=== PATIENT | female | born 2000 | race Caucasian/White ===

== ENCOUNTER 2021-05-17 19:10 | Emergency (ER) | payer OTHER ==
[~2021-05-17] VITALS: Ht 154.9 cm; Wt 68.0 kg
[2021-05-17] MEDS ORDERED: ENBRACE HR SOF1 EACH PO (19:33)
[2021-05-17] MEDS ORDERED: IRON325 M1 PO (19:34)
[2021-05-17 20:11] VITALS: BP 117/51
== END 2021-05-17 20:11 | disposition home or self-care (01) ==
LOC: M.ERS 19:10
DX: G43.909 Migraine, unspecified, not intractable, without status migrainosus (principal); H91.90 Unspecified hearing loss, unspecified ear; F31.9 Bipolar disorder, unspecified; Z79.899 Other long term (current) drug therapy; Z88.1 Allergy status to other antibiotic agents; Z88.6 Allergy status to analgesic agent; Z88.8 Allergy status to other drugs, medicaments and biological substances